=== PATIENT | female | born 1970 | race Caucasian/White ===

== ENCOUNTER 2018-02-23 12:16 | Emergency (ER) | payer BC ==
[2018-02-23] MEDS ORDERED: Ibuprofen 800 MG TAB ONE (13:16)
[2018-02-23] MEDS ORDERED: traMADol HCl 50 MG TAB ONE (13:16)
== END 2018-02-23 13:20 | disposition home or self-care (01) ==
LOC: BURERS 12:16
DX: S56.211A Strain of other flexor muscle, fascia and tendon at forearm level, right arm, initial encounter (principal); E78.5 Hyperlipidemia, unspecified; F17.210 Nicotine dependence, cigarettes, uncomplicated; X58.XXXA Exposure to other specified factors, initial encounter
CPT/HCPCS: 99283

== ENCOUNTER 2020-04-21 17:24 | Emergency (ER) | payer BC ==
[2020-04-21] MEDS ORDERED: traMADol HCl 50 MG TAB ONE (18:11)
--- NOTE | 2020-04-21 20:48 | RAD ---
LEFT KNEE FOUR VIEWS: 04/21/20 FINDINGS: No fracture or dislocation is seen. No joint effusion is evident. The joint space is normal in appear ance. IMPRESSION: No acute finding. POS: HOME
--- NOTE | 2020-04-21 20:49 | RAD ---
RIGHT KNEE FOUR VIEWS: 04/21/20 FINDINGS: There might be a small joint effusion but I am not certain of this. No fractures are visible. IMPRESSION: No fracture seen. POS: HOME
== END 2020-04-21 18:12 | disposition home or self-care (01) ==
LOC: BURERS 17:24
DX: S46.212A Strain of muscle, fascia and tendon of other parts of biceps, left arm, initial encounter (principal); S46.211A Strain of muscle, fascia and tendon of other parts of biceps, right arm, initial encounter; E78.00 Pure hypercholesterolemia, unspecified; W17.89XA Other fall from one level to another, initial encounter

== ENCOUNTER 2021-02-01 06:32 | Emergency (ER) | payer BC, SELFPAY ==
[2021-02-01] MEDS ORDERED: Acetaminophen 500 MG TAB ONE (07:06)
[2021-02-01] MEDS ORDERED: Ketorolac Tromethamine 30 MG/ML VIAL ONE (07:06)
[2021-02-01] MEDS ORDERED: Azithromycin 500 MG VIAL ONE (07:31)
[2021-02-01] MEDS ORDERED: cefTRIAXone\\ROCEPHIN 2 GM VIAL ONE (07:31)
[2021-02-01 07:33] LABS: #Monocytes 0.5 thou/uL (0.11-0.59); #Neutrophils 9.8 thou/uL (1.40-6.50); %Basophils 0.2 % (0.0-1.0); %Lymphocytes 8.9 % (21.0-51.0); %Neutrophils 86.9 % (42.0-75.0); Hemoglobin 13.3 g/dL (12.0-16.0); Mean Corpuscular Hemoglobin 29.8 pg (27.0-31.0); Mean Corpuscular Volume 87.6 fL (78.0-98.0); Mean Platelet Volume 6.4 fL (7.4-10.4); Platelet Count 132 thou/uL (130-400); RBC Distribution Width 11.1 % (11.5-14.5); Red Blood Cell (RBC) Count 4.46 mill/uL (4.20-5.40); White Blood Cell (WBC) Count 11.3 thou/uL (4.8-10.8)
[2021-02-01 07:52] LABS: ALT (SGPT) 20 U/L (8-55); AST (SGOT) 18 U/L (5-34); Albumin 3.8 g/dL (3.5-5.0); Alkaline Phosphatase 61 U/L (40-110); Anion Gap 15 mmol/L (10-20); BUN (Urea Nitrogen) 9 mg/dL (9.8-20.1); Bilirubin, Total 0.9 mg/dL (0.2-1.2); CK (CPK) 58 U/L (29-168); Calc. Creatinine Clearance 0 mL/min (70-130); Calcium 8.8 mg/dL (7.8-10.44); Carbon Dioxide 22 mmol/L (22-29); Chloride 104 mmol/L (98-107); Globulin 2.7 g/dL (2.4-3.5); Glucose 126 mg/dL (70-105); Potassium 3.6 mmol/L (3.5-5.1); Protein, Total 6.5 g/dL (6.0-8.3); Sodium 137 mmol/L (136-145)
[2021-02-01 17:22] LABS: SARS-CoV-2 PCR by NAA Not Detected (NotDetected)
== END 2021-02-01 08:21 | disposition home or self-care (01) ==
LOC: BURERS 06:32
DX: J18.9 Pneumonia, unspecified organism (principal); Z20.822 Contact with and (suspected) exposure to COVID-19; E78.5 Hyperlipidemia, unspecified
CPT/HCPCS: 71045; 80053; 82550; 83605; 84484; 85025; 93005; 96365; 96367; 96375; J0456; J0696; J1885; U0003; U0005

== ENCOUNTER 2021-09-21 06:34 | Emergency (ER) | payer BC, OTHER, SELFPAY ==
[2021-09-21] MEDS ORDERED: Morphine 4 MG/ML VIAL ONE (07:18)
[2021-09-21] MEDS ORDERED: Ketorolac Tromethamine 30 MG/ML VIAL ONE (07:18)
== END 2021-09-21 07:45 | disposition home or self-care (01) ==
LOC: BURERS 06:34
DX: S46.011A Strain of muscle(s) and tendon(s) of the rotator cuff of right shoulder, initial encounter (principal); S43.421A Sprain of right rotator cuff capsule, initial encounter; E78.5 Hyperlipidemia, unspecified; X50.0XXA Overexertion from strenuous movement or load, initial encounter
CPT/HCPCS: J1885; J2270